=== PATIENT | female | born 1935 | race Caucasian/White ===

== ENCOUNTER → 2016-10-03 | Outpatient (CLI) | payer MEDICARE, OTHER ==
[~2016-10-03] MED LIST: FELO10TA PO; LOSA50TA6 PO; METF500T4 PO; SIMV20TA3 PO
[2016-10-03 14:06] LABS: BILIRUBIN,URINE SMALL (NEG); GLUCOSE,URINE NEGATIVE (NEG); NITRITE,URINE NEGATIVE (NEG); PROTEIN,URINE 100 mg/dL (NEG-TRACE); UROBILINOGEN,URINE 0.2 mg/dL (0.2 mg/dL)
--- NOTE | 2016-10-03 14:11 | EKG ---
[facility] [address] [place] [address] Test Date: 2016-10-03 Test Time: 14:11:18 Pat Name: MENA CAICEDODepartment: Room: Gender: F [employer] Teacher: : 1935 Requested By: DANISHA UNDERWOOD Order Number: [id number] Reading MD: Connie Chavira Measurements Intervals [place] Rate: 71 P: 51 NM: 162 QRS: -38 QRSD: 84 T: 14 QT: 390 QTc: 429 Interpretive Statements SINUS RHYTHM ABNORMAL LEFT AXIS DEVIATION CONSIDER LEFT VENTRICULAR HYPERTROPHY ABNORMAL ECG RI6.01 No previous ECG available for comparison Electronically Signed On 10-04-2016 20:42:48 CDT by Connie Chavira
[2016-10-03 14:20] LABS: BASO % 1 % (0-3); EOS % 6 % (0-3); HEMOGLOBIN 10.3 g/dL (12.0-15.5); LYMPH # 0.7 x10^3/uL (1.0-4.8); LYMPH % 16 % (24-48); MEAN CORPUSCULAR HEMOGLOBIN 24 pg (25-35); MEAN CORPUSCULAR HGB CONC 31 g/dL (31-37); MEAN CORPUSCULAR VOLUME 77 fL (79-100); MONO % 9 % (0-9); NEUT % 68 % (31-73); PLATELET COUNT 244 x10^3/uL (140-400); RED CELL DISTRIBUTION WIDTH 15.5 % (11.5-14.5); WHITE BLOOD COUNT 4.3 x10^3/uL (4.0-11.0)
[2016-10-03 14:23] LABS: ALBUMIN 3.6 g/dL (3.4-5.0); CALCIUM 9.4 mg/dL (8.5-10.1); CREATININE 0.7 mg/dL (0.6-1.0); GFR 80.9; POTASSIUM 4.4 mmol/L (3.5-5.1)
[2016-10-03 15:09] LABS: BACTERIA,URINE MODERATE /HPF (0-FEW); RBC,URINE 0 /HPF (0-2); WBC,URINE >40 /HPF (0-4)
[2016-10-03 15:10] LABS: SQUAMOUS EPITHELIAL CELL,UR MANY /LPF
--- NOTE | 2016-10-03 15:48 | RAD ---
Chest, 2 views, 10/03/2016: History: Preop evaluation for knee surgery The heart size and pulmonary vascularity are normal. There is tortuosity and calcific plaquing of the thoracic aorta. There is pleural thickening over the pulmonary apices compatible with scarring. There also appears to be minimal basilar scarring. No pulmonary consolidation is seen. There is no evidence of pleural fluid. Moderate degenerative changes are present in the spine. IMPRESSION: 1. Aortic atherosclerosis. 2. Mild pleural/parenchymal scarring. 3. No acute abnormality is detected.
[2016-10-03 16:43] LABS: INR 1.1 (0.8-1.1); PROTHROMBIN TIME PATIENT 13.2 SEC (11.7-14.0)
== END | disposition home or self-care (01) ==
LOC: SURGPAT 12:58
PROVIDERS: ATTEND Orthopaedic Surgery
DX: Z01.818 Encounter for other preprocedural examination (principal); Z96.651 Presence of right artificial knee joint
CPT/HCPCS: 36415; 71020; 80048; 81001; 82040; 83036; 85027; 85610; 85651; 85730; 87641; 93005

== ENCOUNTER → 2016-10-24 | Day surgery (SDC) | payer MEDICARE, OTHER ==
[~2016-10-24] MED LIST changes: +FENTANYL PF 100 MCG/2 ML VIAL. IV PRN; +HYDROMORPHONE 2 MG/ML VIAL. IV PRN; +IV RINGERS,LACTATED 1000ML 1,000 ML IV SCH; +LIDOCAINE 1% 1 ML SYRINGE. ID PRN; +LIDOCAINE 2% PF Vial for OR 5 ML VIAL. ONE; +MORPHINE SULFATE 2 MG/ML DISP.SYRIN. IV PRN; +ONDANSETRON PF 4 MG/2 ML VIAL. IV PRN; +PROCHLORPERAZINE 10 MG/2 ML VIAL. IV PRN; +PROPOFOL 40 ML IV ONE
[2016-10-24 16:27] VITALS: BP 152/72
== END | disposition home or self-care (01) ==
LOC: ENDOS 14:50
PROVIDERS: ATTEND Internal Medicine Gastroenterology
DX: D50.9 Iron deficiency anemia, unspecified (principal); K57.30 Diverticulosis of large intestine without perforation or abscess without bleeding; K64.0 First degree hemorrhoids; K31.7 Polyp of stomach and duodenum; E78.00 Pure hypercholesterolemia, unspecified; E11.9 Type 2 diabetes mellitus without complications; I10 Essential (primary) hypertension; M19.90 Unspecified osteoarthritis, unspecified site; Z79.82 Long term (current) use of aspirin
CPT/HCPCS: 36415; 43239; 45378; 82607; J2704

== ENCOUNTER → 2016-11-06 | Outpatient (CLI) | payer MEDICARE, OTHER ==
[2016-11-02 14:59] VITALS: BP 115/55
[~2016-11-06] MED LIST changes: -FENTANYL PF 100 MCG/2 ML VIAL. IV PRN; +HYDR-2762 PO; -HYDROMORPHONE 2 MG/ML VIAL. IV PRN; -IV RINGERS,LACTATED 1000ML 1,000 ML IV SCH; -LIDOCAINE 1% 1 ML SYRINGE. ID PRN; -LIDOCAINE 2% PF Vial for OR 5 ML VIAL. ONE; -MORPHINE SULFATE 2 MG/ML DISP.SYRIN. IV PRN; -ONDANSETRON PF 4 MG/2 ML VIAL. IV PRN; +PANT40TA3 PO; -PROCHLORPERAZINE 10 MG/2 ML VIAL. IV PRN; -PROPOFOL 40 ML IV ONE
--- NOTE | 2016-11-06 11:41 | KCIC ---
Examination: Ultrasound right lower extremity venous duplex HISTORY History of edema right lower extremity. TECHNIQUE Grayscale, color Doppler 2D, spectral waveform analysis of the right lower extremity venous system were performed. Findings : Common femoral vein, superficial femoral vein, popliteal vein demonstrate normal compression and augmentation of flow. The visualized calf veins are patent. IMPRESSION No evidence of deep venous thrombosis identified in the visualized right lower extremity venous system. Electronically signed by: Calin Waddell (Nov 06, 2016 11:39:57)
== END | disposition home or self-care (01) ==
LOC: KCIC US 11:03
PROVIDERS: ATTEND Family Medicine
DX: R60.0 Localized edema (principal)
CPT/HCPCS: 93971

== ENCOUNTER 2016-11-24 16:15 | Emergency (ER) | payer MEDICARE, OTHER ==
[2016-11-24] MEDS ORDERED: METOCLOPRAMIDE HCL 10 MG/2 ML VIAL. IV ONE (17:30)
[2016-11-24] MEDS ORDERED: IV NORMAL SALINE 500ML BAG 500 ML IV ONE (17:30)
--- NOTE | 2016-11-24 17:30 | PHYS DOC ---
Past Medical History Past Medical History: Anemia Additional Past Surgical Histo: knee replacement Alcohol Use: None Drug Use: None Adult General Chief Complaint Chief Complaint: NAUSEA/VOMITING/DIARRHA HPI HPI 81-year-old female presenting to the emergency department with nausea. She's been having nausea for approximately 24 hours and has had one episode of emesis today. Her emesis is nonbilious and nonbloody. She does have a chronic anemia at that she reports and reports having an endoscopy that was negative. Otherwise she is without pain. She denies chest pain or abdominal pain. Review of systems is negative for fevers chills cough bloody stools. All other review of systems is negative unless otherwise noted in history of present illness. Review of Systems Review of Systems SEE ABOVE. Current Medications Current Medications Current Medications Medications (Trade) Dose Ordered Sig/Nestor Start Time Stop Time Status Last Admin Dose Admin Metoclopramide HCl (Reglan) 10 mg 1X ONCE 11/24/16 17:30 11/24/16 17:31 DC 11/24/16 17:47 10 MG Sodium Chloride 500 ml @ 500 mls/hr 1X ONCE 11/24/16 17:30 11/24/16 18:29 DC 11/24/16 17:48 500 MLS/HR Allergies Allergies Allergies Coded Allergies Type Severity Reaction Last Updated Verified cyanocobalamin (vitamin B12) Allergy Severe SHORTNESS OF BREATH 10/31/16 Yes Physical Exam Physical Exam Constitutional: Well developed, well nourished, no acute distress, non-toxic appearance. HENT: Normocephalic, atraumatic, bilateral external ears normal, oropharynx moist, no oral exudates, nose normal. [] Eyes: PERRLA, EOMI, conjunctiva normal, no discharge. [] Neck: Normal range of motion, no tenderness, supple, no stridor. Cardiovascular:Heart rate regular rhythm, no murmur [] Lungs & Thorax: Bilateral breath sounds clear to auscultation Abdomen: Soft nontender abdomen without rebound tenderness or guarding present. Negative McBurneys point. Negative Roth sign. No ecchymosis present. Skin: Warm, dry, no erythema, no rash. [] Back: No tenderness, no CVA tenderness. Extremities: No tenderness, no cyanosis, no clubbing, ROM intact, no edema. Neurologic: Alert and oriented X 3, normal motor function, normal sensory function, no focal deficits noted. [] Psychologic: Affect normal, judgement normal, mood normal. [] Current Patient Data Vital Signs Vital Signs Date Time Temp Pulse Resp B/P (MAP) Pulse Ox O2 Delivery O2 Flow Rate FiO2 11/24/16 18:00 86 17 140/71 (94) 92 Room Air 11/24/16 17:00 98.7 98.7 Lab Values Laboratory Tests Test 11/24/16 17:30 11/24/16 17:40 Urine Collection Type Unknown Urine Color Yellow Urine Clarity Clear Urine pH 5.5 Urine Specific [place] 1.025 Urine Protein 30 mg/dL (NEG-TRACE) Urine Glucose (UA) Negative mg/dL (NEG) Urine Ketones (Stick) Negative mg/dL (NEG) Urine Blood Negative (NEG) Urine Nitrite Negative (NEG) Urine Bilirubin Negative (NEG) Urine Urobilinogen Dipstick 1.0 mg/dL (0.2 mg/dL) Urine Leukocyte Esterase Small (NEG) Urine RBC 0 /HPF (0-2) Urine WBC 1-4 /HPF (0-4) Urine Squamous Epithelial Cells Mod /LPF Urine Bacteria Few /HPF (0-FEW) Urine Mucus Mod /LPF White Blood Count 3.4 x10^3/uL (4.0-11.0) L Red Blood Count 4.14 x10^6/uL (3.50-5.40) Hemoglobin 10.8 g/dL (12.0-15.5) L Hematocrit 33.6 % (36.0-47.0) L Mean Corpuscular Volume 81 fL (79-100) Mean Corpuscular Hemoglobin 26 pg (25-35) Mean Corpuscular Hemoglobin Concent 32 g/dL (31-37) Red Cell Distribution Width 24.9 % (11.5-14.5) H Platelet Count 220 x10^3/uL (140-400) Neutrophils (%) (Auto) 69 % (31-73) Lymphocytes (%) (Auto) 13 % (24-48) L Monocytes (%) (Auto) 10 % (0-9) H Eosinophils (%) (Auto) 8 % (0-3) H Basophils (%) (Auto) 1 % (0-3) Neutrophils # (Auto) 2.3 x10^3uL (1.8-7.7) Lymphocytes # (Auto) 0.4 x10^3/uL (1.0-4.8) L Monocytes # (Auto) 0.3 x10^3/uL (0.0-1.1) Eosinophils # (Auto) 0.3 x10^3/uL (0.0-0.7) Basophils # (Auto) 0.0 x10^3/uL (0.0-0.2) Platelet Estimate Adequate (ADEQUATE) Polychromasia Slight Anisocytosis Mod Sodium Level 135 mmol/L (136-145) L Potassium Level 4.7 mmol/L (3.5-5.1) Chloride Level 100 mmol/L (98-107) Carbon Dioxide Level 26 mmol/L (21-32) Anion Gap 9 (6-14) Blood Urea Nitrogen 18 mg/dL (7-20) Creatinine 0.6 mg/dL (0.6-1.0) Estimated GFR (Cockcroft-Gault) 96.4 Glucose Level 120 mg/dL (70-99) H Lactic Acid Level 1.3 mmol/L (0.4-2.0) Calcium Level 9.1 mg/dL (8.5-10.1) Total Bilirubin 0.4 mg/dL (0.2-1.0) Direct Bilirubin 0.1 mg/dL (0.0-0.2) Aspartate Amino Transferase (AST) 67 U/L (15-37) H Alanine Aminotransferase (ALT) 37 U/L (14-59) Alkaline Phosphatase 50 U/L (46-116) Troponin I Quantitative < 0.017 ng/mL (0.000-0.055) KU-Cer-E-Type Natriuretic Peptide 197 pg/mL (0-449) Total Protein 7.3 g/dL (6.4-8.2) Albumin 3.3 g/dL (3.4-5.0) L Lipase 190 U/L (73-393) Laboratory Tests 11/24/16 17:40 Laboratory Tests 11/24/16 17:40 EKG EKG [] EKG shows sinus rhythm with a regular rate. [place] normal. Not suggestive of ischemia. Radiology/Procedures Radiology/Procedures [] Chest x-ray shows poor expiratory effort. Atelectasis present. X-ray in conjunction with the patient's current presentation is not suggestive of pneumonia. The patient does not have a fever or cough. Her only presentation is nausea. Course & Med Decision Making Course & Med Decision Making Pertinent Labs and Imaging studies reviewed. (See chart for details) [] 81-year-old female presenting to the emergency department today with nausea. Triage vital signs afebrile with a normal heart rate. Pertinent physical exam findings showed a nontender abdomen. She was well-appearing. Nontoxic. IV established and blood work obtained. EKG obtained along with chest x-ray. EKG not suggestive of ischemia. The patient was given Reglan and a small bolus of IV fluids in the emergency department. Urinalysis shows a contaminated specimen. We will follow culture. On reexamination she was feeling better. She was subsequently discharged home. The patient was then discharged home in stable condition to follow up with their primary care physician over the next 2- 3 days. They were to return if their symptoms worsened or if they were concerned for any reason. [id number] discharge instructions and return precautions were given. Patient's questions were answered to their satisfaction. Patient is comfortable plan. Dragon Disclaimer Dragon Disclaimer This electronic medical record was generated, in whole or in part, using a voice recognition dictation system. Departure Departure Impression: Primary Impression: Nausea & vomiting Disposition: 01 HOME, SELF-CARE Condition: STABLE Referrals: HARISH PRIETO MD (PCP) Patient Instructions: Nausea and Vomiting Additional Instructions: Thank you for allowing us to participate in your care today. Followup with your primary care physician in 3 days if your symptoms do not improve. If you do not have a primary care provider you can ask for a list of our primary care providers. Return to the emergency department you have any new or concerning findings. This should be evaluated by the primary care physician and any necessary consulting services for continued management within a few days after discharge. Return to emergency room if you have any new or concerning symptoms including but not limited to fever, chills, nausea, vomiting, intractable pain, any new rashes, chest pain, shortness of air, uncontrolled bleeding, difficulty breathing, and/or vision loss. You may have been prescribed medication that can change in your level of thinking and ability to operate machinery. These medications include hydrocodone and Ativan. Also, Benadryl has been known to do this as well. Be sure to check with your pharmacist and ask if the medications you've prescribed can affect your level of consciousness. I recommend not operating heavy machinery or driving while on medication such as these. RENAN YOUNGBLOOD MD November 24, 2016 17:29
--- NOTE | 2016-11-24 17:34 | EKG ---
[facility] [address] [place] [address] Test Date: 2016-11-24 Test Time: 17:19:31 Pat Name: MENA CAICEDODepartment: Room: Gender: F [employer] Hand: : 1935 Requested By: RENAN YOUNGBLOOD Order Number: [id number] Reading MD: Connie Chavira Measurements Intervals [place] Rate: 83 P: 39 [place]: 162 QRS: -37 QRSD: 92 T: 22 QT: 352 QTc: 414 Interpretive Statements SINUS RHYTHM NORMAL EKG Electronically Signed On 11-26-2016 17:53:52 CDT by Connie Chavira
[2016-11-24 17:46] LABS: BILIRUBIN,URINE NEGATIVE (NEG); GLUCOSE,URINE NEGATIVE (NEG); NITRITE,URINE NEGATIVE (NEG); PH,URINE 5.5; PROTEIN,URINE 30 mg/dL (NEG-TRACE)
[2016-11-24 17:54] LABS: BACTERIA,URINE FEW /HPF (0-FEW); RBC,URINE 0 /HPF (0-2); SQUAMOUS EPITHELIAL CELL,UR MOD /LPF
[2016-11-24 18:11] LABS: BASO % 1 % (0-3); EOS % 8 % (0-3); HEMATOCRIT 33.6 % (36.0-47.0); HEMOGLOBIN 10.8 g/dL (12.0-15.5); LYMPH # 0.4 x10^3/uL (1.0-4.8); LYMPH % 13 % (24-48); MEAN CORPUSCULAR HEMOGLOBIN 26 pg (25-35); MEAN CORPUSCULAR HGB CONC 32 g/dL (31-37); MEAN CORPUSCULAR VOLUME 81 fL (79-100); MONO % 10 % (0-9); NEUT % 69 % (31-73); PLATELET COUNT 220 x10^3/uL (140-400); RED BLOOD COUNT 4.14 x10^6/uL (3.50-5.40); RED CELL DISTRIBUTION WIDTH 24.9 % (11.5-14.5); WHITE BLOOD COUNT 3.4 x10^3/uL (4.0-11.0)
[2016-11-24 18:23] LABS: CALCIUM 9.1 mg/dL (8.5-10.1); CREATININE 0.6 mg/dL (0.6-1.0); GFR 96.4; POTASSIUM 4.7 mmol/L (3.5-5.1)
[2016-11-24 18:29] LABS: ALBUMIN 3.3 g/dL (3.4-5.0); DIRECT BILIRUBIN 0.1 mg/dL (0.0-0.2); TOTAL BILIRUBIN 0.4 mg/dL (0.2-1.0); TOTAL PROTEIN 7.3 g/dL (6.4-8.2)
[2016-11-24 18:54] LABS: PLT ESTIMATE ADEQUATE (ADEQUATE)
[2016-11-24 18:55] VITALS: BP 146/69
[2016-11-24 18:55] LABS: ANISOCYTOSIS MOD; POLYCHROMASIA SLIGHT
--- NOTE | 2016-11-25 09:34 | RAD ---
Indication nausea. Hypertension. Diabetes. Protocol study. A single view of the chest was obtained and is compared to an examination 10/03/2016. Inspiratory effort is slightly suboptimal. Heart size is at the upper limits of normal. There is suspect mild pulmonary vascular congestion. There is no consolidated pneumonia. Significant pleural fluid in either lung is not seen. There is no pneumothorax. IMPRESSION: Suspect mild pulmonary vascular congestion
== END 2016-11-24 19:13 | disposition home or self-care (01) ==
LOC: ER 16:15
DX: R11.2 Nausea with vomiting, unspecified (principal); Z88.8 Allergy status to other drugs, medicaments and biological substances
CPT/HCPCS: 36415; 71010; 80048; 80076; 81001; 83605; 83690; 83880; 84484; 85007; 85027; 87086; 93005; 96361; 96374; 99285; J2765; J7040